=== PATIENT | female | born 1970 | race American Indian/Alaskan Native ===

== ENCOUNTER 2020-12-02 17:38 | Emergency (ER) | payer SELFPAY ==
[2020-12-02] MEDS ORDERED: KETOROLAC 30 MG/1 ML INJ IM ONE (19:36)
[2020-12-02] MEDS ORDERED: LET TOPICAL (LIDOCAINE/EPINEPHRINE/TETRACAINE) 3 ML TP ONE (19:37)
[2020-12-02] MEDS ORDERED: LIDOCAINE (2%) 20 MG/1 ML VIAL 20 ML MDV INFILTRATI STA (20:12)
[2020-12-02 21:59] VITALS: BP 132/78
== END 2020-12-02 22:03 | disposition home or self-care (01) ==
LOC: ED 17:38
DX: L02.411 Cutaneous abscess of right axilla (principal)
CPT/HCPCS: 96372; 99282; J1885